=== PATIENT | male | born 1960 | race Caucasian/White ===

== ENCOUNTER 2022-01-12 06:10 | Emergency (ER) | payer MEDICARE ==
[~2022-01-12] VITALS: Ht 195.6 cm; Wt 120.0 kg
--- NOTE | 2022-01-12 06:59 | PHYS DOC ---
Past History Past Surgical History: Knee Replacement, Other Additional Past Surgical Histo: cataract General Adult EDM: Chief Complaint: HYPERTENSION HPI: HPI: Patient is a 61-year-old male coming in private vehicle for high blood pressure readings. Patient states he woke up early this morning and had a nightmare where he was "confined". Patient states that then he was anxious and diaphoretic and checked his blood pressure which was 199/130. He states that that about 45 hours prior to arrival he took his lisinopril and amlodipine. Patient has been prescribed his medications for history of hypertension but is noncompliant. Patient states takes medicines approximately once per month. Has had 1 similar episode of this in the past. He denies any headaches, vision changes, shortness of breath, lower extremity edema, chest pain or any other complaints. Review of Systems: Review of Systems: Constitutional: Denies fever or chills Eyes: Denies change in visual acuity HENT: Denies nasal congestion or sore throat Respiratory: Denies cough or shortness of breath Cardiovascular: Denies chest pain or edema GI: Denies abdominal pain, nausea, vomiting, bloody stools or diarrhea : Denies dysuria Musculoskeletal: Denies back pain or joint pain Integument: Denies rash Neurologic: Denies headache, focal weakness or sensory changes Endocrine: Denies polyuria or polydipsia Lymphatic: Denies swollen glands Psychiatric: Denies depression or anxiety Allergies: Allergies: Allergies Coded Allergies Type Severity Reaction Last Updated Verified aspirin Allergy Unknown 01/12/22 Yes meperidine Allergy Unknown 01/12/22 Yes Physical Exam: PE: Constitutional: Well developed, well nourished, no acute distress, non-toxic appearance. [] HENT: Normocephalic, atraumatic, bilateral external ears normal, oropharynx moist, no oral exudates, nose normal. [] Eyes: PERRLA, EOMI, conjunctiva normal, no discharge. [] Neck: Normal range of motion, no tenderness, supple, no stridor. [] Cardiovascular:Heart rate regular rhythm, no murmur [] Lungs & Thorax: Bilateral breath sounds clear to auscultation [] Abdomen: Bowel sounds normal, soft, no tenderness, no masses, no pulsatile masses. [] Skin: Warm, dry, no erythema, no rash. [] Back: No tenderness, no CVA tenderness. [] Extremities: No tenderness, no cyanosis, no clubbing, ROM intact, no edema. [] Neurologic: Alert and oriented X 3, normal motor function, normal sensory function, no focal deficits noted. [] Psychologic: Affect normal, judgement normal, mood normal. [] Current Patient Data: Vital Signs: Vital Signs Date Time Temp Pulse Resp B/P (MAP) Pulse Ox O2 Delivery O2 Flow Rate FiO2 01/12/22 06:10 98.0 79 18 179/127 (144) 97 Room Air EKG: EKG: Sinus rhythm, heart rate 74 bpm, left axis deviation, no STEMI, normal intervals, no ectopy. [] Radiology/Procedures: Radiology/Procedures: [] Heart Score: C/O Chest Pain: No HEART Score for Chest Pain: HEART Score for Chest Pain Response (Comments) Value History Slighlty/Non-Suspicious 0 ECG Normal 0 Age >45 - < 65 1 Risk Factors 1 or 2 Risk Factors 1 Troponin < Normal Limit 0 Total 2 Risk Factors: Risk Factors: DM, Current or recent (<one month) smoker, HTN, HLP, family history of CAD, obesity. Risk Scores: Score 0 - 3: 2.5% MACE over next 6 weeks - Discharge Home Score 4 - 6: 20.3% MACE over next 6 weeks - Admit for Clinical Observation Score 7 - 10: 72.7% MACE over next 6 weeks - Early Invasive Strategies Course & Med Decision Making: Course & Med Decision Making Pertinent Labs and Imaging studies reviewed. (See chart for details) Patient presenting with anxiety after a nightmare and asymptomatic hypertension. There are no signs of endorgan dysfunction on labs. Patient advised to take his blood pressure medication as it was prescribed and follow-up with his primary care provider. [] Dragon Disclaimer: Dragon Disclaimer: This electronic medical record was generated, in whole or in part, using a voice recognition dictation system. Departure Departure: Impression: Primary Impression: Asymptomatic hypertension Disposition: HOME / SELF CARE / HOMELESS Condition: STABLE Referrals: JEANNETTE ALFARO MD (PCP) Patient Instructions: Hypertension Additional Instructions: Take your blood pressure medications as they were prescribed by your primary c are provider for hypertension. Follow-up with Dr. Alfaro in 1 to 2 weeks to recheck your blood pressure and adjust medications as needed. There were no signs of organ damage on your labs to warrant emergent treatment of hypertension. NANCY GOOD MD January 12, 2022 06:59
--- NOTE | 2022-01-12 07:02 | EKG ---
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
[2022-01-12 07:17] LABS: BASO # 0.1 x10^3/uL (0.0-0.2); BASO % 1 % (0-3); EOS # 0.3 x10^3/uL (0.0-0.7); EOS % 6 % (0-3); HEMATOCRIT 47.5 % (39.0-53.0); HEMOGLOBIN 16.2 g/dL (13.0-17.5); LYMPH # 1.2 x10^3/uL (1.0-4.8); LYMPH % 22 % (24-48); MEAN CORPUSCULAR HEMOGLOBIN 32 pg (25-35); MEAN CORPUSCULAR HGB CONC 34 g/dL (31-37); MEAN CORPUSCULAR VOLUME 93 fL (79-100); MONO # 0.3 x10^3/uL (0.0-1.1); MONO % 6 % (0-9); NEUT # 3.6 x10^3uL (1.8-7.7); NEUT % 65 % (31-73); PLATELET COUNT 148 x10^3/uL (140-400); RED BLOOD COUNT 5.11 x10^6/uL (4.30-5.70); RED CELL DISTRIBUTION WIDTH 14.1 % (11.5-14.5); WHITE BLOOD COUNT 5.5 x10^3/uL (4.0-11.0)
[2022-01-12 07:40] LABS: ALBUMIN 3.4 g/dL (3.4-5.0); ALBUMIN/GLOBULIN RATIO 1.1 (1.0-1.7); CALCIUM 8.5 mg/dL (8.5-10.1); CREATININE 1.1 mg/dL (0.7-1.3); GFR 67.8; TOTAL BILIRUBIN 0.9 mg/dL (0.2-1.0); TOTAL PROTEIN 6.5 g/dL (6.4-8.2)
[2022-01-12 07:57] LABS: POTASSIUM 3.6 mmol/L (3.5-5.1)
[2022-01-12 08:20] VITALS: BP 189/106
== END 2022-01-12 08:24 | disposition home or self-care (01) ==
LOC: ER 06:10
DX: I10 Essential (primary) hypertension (principal); Z88.6 Allergy status to analgesic agent; Z88.8 Allergy status to other drugs, medicaments and biological substances
CPT/HCPCS: 36415; 80053; 83880; 84484; 85025; 93005; 99285